=== PATIENT | male | born 1985 | race Caucasian/White ===

== ENCOUNTER 2021-08-17 18:05 | Emergency (ER) | payer MEDICAID, OTHER ==
[~2021-08-17] VITALS: Ht 182.9 cm; Wt 245.0 kg
[2021-08-17] MEDS ORDERED: ONDA4TAB12 PO (18:32)
[2021-08-17] MEDS ORDERED: ALBU6.7H9 INH (18:32)
[2021-08-17] MEDS ORDERED: PRED10TA23 PO (18:32)
[2021-08-17 18:49] VITALS: BP 178/128
== END 2021-08-17 21:17 | disposition home or self-care (01) ==
LOC: ER 18:05
DX: J06.9 Acute upper respiratory infection, unspecified (principal); Z20.822 Contact with and (suspected) exposure to COVID-19; R05.9 Cough, unspecified; R09.89 Other specified symptoms and signs involving the circulatory and respiratory systems; R53.83 Other fatigue; R07.89 Other chest pain; R51.9 Headache, unspecified; J02.9 Acute pharyngitis, unspecified; F32.9 Major depressive disorder, single episode, unspecified; Z60.2 Problems related to living alone; Z56.0 Unemployment, unspecified; Z79.899 Other long term (current) drug therapy
CPT/HCPCS: 36415; 71045; 99284; U0003; U0005